=== PATIENT | female | born 1995 | race Caucasian/White ===

== ENCOUNTER 2020-09-28 03:07 | Emergency (ER) | payer SELFPAY ==
[2020-09-28 03:13] VITALS: TEMP 98.6; BMI 28.3
[2020-09-28] MEDS ORDERED: SODIUM CHLORIDE 1,000 ML IV STA (04:17)
[2020-09-28 05:36] LABS: BASO % 0.2 % (0-2.0); EOS % 0.5 % (0-4.5); HEMATOCRIT 39.6 % (32.4-45.2); HEMOGLOBIN 12.7 GM/dL (10.7-15.3); LYMPH % 26.4 % (8-40); MCH 25.8 pg (25.7-33.7); MCHC 32.1 g/dl (32.0-36.0); MEAN CELL VOLUME 80.4 fl (80-96); MEAN PLT VOLUME 9.3 fl (7.5-11.1); MONO % 7.5 % (3.8-10.2); NEUT % 65.4 % (42.8-82.8); PLATELET COUNT 248 K/MM3 (134-434); RBC 4.92 M/mm3 (3.60-5.2); WHITE BLOOD COUNT 9.6 K/mm3 (4.0-10.0)
[2020-09-28 05:54] LABS: POTASSIUM 4.1 mmol/L (3.5-5.1)
[2020-09-28 05:56] LABS: BLOOD UREA NITROGEN 12.4 mg/dL (7-18); CALCIUM 9.7 mg/dL (8.5-10.1)
[2020-09-28 05:57] LABS: ALBUMIN 4.4 g/dl (3.4-5.0)
[2020-09-28 05:59] LABS: CREATININE 0.7 mg/dL (0.55-1.3)
[2020-09-28 06:01] LABS: BILIRUBIN,TOTAL 0.2 mg/dL (0.2-1); TOT PROT 8.4 g/dl (6.4-8.2)
[2020-09-28 09:35] VITALS: BP 119/78; PULSE 82
== END 2020-09-28 09:36 | disposition home or self-care (01) ==
LOC: JER 03:07
PROC: 3E0337Z Introduction of Electrolytic and Water Balance Substance into Peripheral Vein, Percutaneous Approach (ICD-10-PCS; principal; 2020-09-28)
DX: F41.9 Anxiety disorder, unspecified (principal)
CPT/HCPCS: 36415; 71046-TC-FY; 80053; 82550; 84443; 84484; 85025; 85379; 93005; 93010; 99284-25; C9803; U0003